=== PATIENT | female | born 1980 | race Hispanic/Latino ===

== ENCOUNTER 2018-06-25 23:26 | Emergency (ER) | payer BC ==
[2018-06-25 23:48] VITALS: RESP 18
[2018-06-26 01:24] LABS: BASO % 0.9 % (0.0-2.0); HEMOGLOBIN 13.1 g/dL (12.0-16.0); LYMPH # 1.1 K/uL (1.0-4.3); LYMPH % 29.9 % (20.0-40.0); MEAN CELL VOLUME 98.7 fl (81.0-99.0); MEAN CORPUSCULAR HEMOGLOBIN 32.9 pg (27.0-31.0); MEAN CORPUSCULAR HGB CONC 33.4 g/dL (33.0-37.0); MEAN PLATELET VOLUME 8.9 fl (7.2-11.7); MONO # 0.4 K/uL (0.0-0.8); MONO % 12.1 % (0.0-10.0); NEUT # 2.1 K/uL (1.8-7.0); NEUT % 56.1 % (50.0-75.0); RBC 3.96 Mil/uL (3.80-5.20); RED CELL DISTRIBUTION WIDTH 14.2 % (11.5-14.5); WHITE BLOOD COUNT 3.7 K/uL (4.8-10.8)
[2018-06-26 01:45] LABS: ALB/GLOB RATIO 1.5 (1.0-2.1); ALBUMIN 4.6 g/dL (3.5-5.0); ALT/SGPT 43 U/L (9-52); AST/SGOT 39 U/L (14-36); BLOOD UREA NITROGEN 20 mg/dl (7-17); CALCIUM 9.7 mg/dL (8.4-10.2); GFR NON-AFRICAN AMERICAN > 60
[2018-06-26 01:52] LABS: ACETAMINOPHEN < 10.0 ug/ml (10.0-30.0); SALICYLATE < 1.0 mg/dl
--- NOTE | 2018-06-26 02:08 | ED PDOC ---
HPI: Psych/Substance Abuse Time Seen by Provider: 06/25/18 23:51 Chief Complaint (Nursing): Substance Abuse Chief Complaint (Provider): Substance Abuse History/Exam Limitations: no limitations Onset/Duration Of Symptoms: Hrs ([employer]) Additional Complaint(s): 37 y/o female with history of depression, bipolar disorder, and ADHD presents to the Ed for possible overdose. Patient states she accidentally took 4-5 tabs of Adderall within 1 hour just prior to arrival. Patient states this was unintentional and denies any suicidal ideation. Patient reports she takes Adderall for her ADHD and normally takes 2 tabs in the morning. Today she took the 2 tabs as usual but then by mistake took another dose. Past Medical History Reviewed: Historical Data, Nursing Documentation, Vital Signs Vital Signs: Last Vital Signs Temp 98.7 F 06/25/18 23:44 Pulse 78 06/25/18 23:44 Resp 18 06/25/18 23:44 BP 120/61 06/25/18 23:44 Pulse Ox 100 06/25/18 23:44 - Medical History PMH: Anxiety, Bipolar Disorder, Depression Other PMH: ADHD - Surgical History Surgical History: No Surg Hx - Family History Family History: States: No Known Family Hx - Allergies Allergies/Adverse Reactions: Allergies Allergy/AdvReac Type Severity Reaction Status Date / Time Sulfa (Sulfonamide Allergy RASH Verified 06/25/18 23:44 Antibiotics) Review of Systems ROS Statement: Except As Marked, All Systems Reviewed And Found Negative Psych: Positive for: Depression. Negative for: Suicidal ideation Physical Exam - Reviewed Nursing Documentation Reviewed: Yes Vital Signs Reviewed: Yes - Physical Exam Appears: Positive for: Well, Non-toxic, No Acute Distress Head Exam: Positive for: ATRAUMATIC, NORMAL INSPECTION, NORMOCEPHALIC Skin: Positive for: Normal Color, Warm, DRY Eye Exam: Positive for: EOMI, Normal appearance, PERRL ENT: Positive for: Normal ENT Inspection Neck: Positive for: Normal, Painless ROM Cardiovascular/Chest: Positive for: Regular Rate, Rhythm. Negative for: Murmur Respiratory: Positive for: Normal Breath Sounds. Negative for: Respiratory Dist ress Gastrointestinal/Abdominal: Positive for: Normal Exam, Soft. Negative for: Tenderness Back: Positive for: Normal Inspection Extremity: Positive for: Normal ROM. Negative for: Pedal Edema, Deformity Neurologic/Psych: Positive for: Alert, Oriented. Negative for: Motor/Sensory Deficits - Laboratory Results Result Diagrams: 06/26/18 01:12 06/26/18 01:12 Lab Results: Total Bilirubin 0.2 mg/dl (0.2-1.3) 06/26/18 01:12 AST 39 U/L (14-36) H 06/26/18 01:12 ALT 43 U/L (9-52) 06/26/18 01:12 Alkaline Phosphatase 68 U/L (38-126) 06/26/18 01:12 Total Protein 7.7 G/DL (6.3-8.2) 06/26/18 01:12 Albumin 4.6 g/dL (3.5-5.0) 06/26/18 01:12 Globulin 3.1 gm/dL (2.2-3.9) 06/26/18 01:12 Albumin/Globulin Ratio 1.5 (1.0-2.1) 06/26/18 01:12 - ECG O2 Sat by Pulse Oximetry: 100 (RA) Pulse Ox Interpretation: Normal - Progress Re-evaluation Time: 03:24 Condition: Re-examined, Improved Medical Decision Making Medical Decision Making: Time: 00:50 Initial Impression: non-intentional overdose with Adderall Initial Plan: * EKG * Acetaminophen * CMP * Salicylate * CBC w/ diff * Monitor * Reassess Scribe Attestation: Documented by Enio Pedro acting as a scribe for Lenny Kay MD Provider Scribe Attestation: All medical record entries made by the Scribe were at my direction and personally dictated by me. I have reviewed the chart and agree that the record accurately reflects my personal performance of the history, physical exam, medical decision making, and the department course for this patient. I have also personally directed, reviewed, and agree with the discharge instructions and disposition. Disposition - Clinical Impression Clinical Impression: Accidental amphetamine overdose - Patient ED Disposition Is Patient to be Admitted: No Doctor Will See Patient In The: Office Counseled Patient/Family Regarding: Studies Performed, Diagnosis, Need For Followup - Disposition Referrals: [facility] [Outside] Disposition: Routine/Home Disposition Time: 03:24 Condition: GOOD Additional Instructions: SILVANO LUCAS, thank you for letting us take care of you today. Your provider was Lenny Kay MD and you were treated for SUBSTANCE ABUSE. The emergency medical care you received today was directed at your acute symptoms. If you were prescribed any medication, please fill it and take as directed. It may take several days for your symptoms to resolve. Return to the Emergency Department if your symptoms worsen, do not improve, or if you have any other problems. Please contact your doctor or call one of the physicians/clinics you have been referred to that are listed on the Patient Visit Information form that is included in your discharge packet. Bring any paperwork you were given at discharge with you along with any medications you are taking to your follow up visit. Our treatment cannot replace ongoing medical care by a primary care provider outside of the emergency department. Thank you for allowing the [facility] team to be part of your care today. If you had an X-Ray or CT scan: A Radiologist will review the ED reading if any change in treatment is needed we will contact you. If you had a blood, urine, or wound culture: It will take several days for the results, if any change in treatment is needed we will contact you. If you had an STI test: It will take 48 hours for the results. Please call after 1 week if you have not heard back. Instructions: Accidental Overdose
[2018-06-26 03:34] VITALS: BP 111/68; PULSE 79; TEMP 98.1
[2018-06-26 05:49] VITALS: O2SAT 100
--- NOTE | 2018-06-26 19:26 | CARD ---
APPROVED REPORT Date of service: 06/26/2018 EKG Measurement Heart [id number] CT 150P-4 [id number] <Conclusion> Normal sinus rhythm Normal ECG
== END 2018-06-26 03:35 | disposition home or self-care (01) ==
LOC: H.ER 23:26
DX: T43.621A Poisoning by amphetamines, accidental (unintentional), initial encounter (principal); Z86.59 Personal history of other mental and behavioral disorders; F90.9 Attention-deficit hyperactivity disorder, unspecified type; Z88.2 Allergy status to sulfonamides
CPT/HCPCS: 80053; 81025; 85025; 93005; 99283; G0480